=== PATIENT | female | born 1995 | race Caucasian/White ===

== ENCOUNTER 2018-08-28 08:48 | Emergency (ER) | payer OTHER ==
[~2018-08-28] VITALS: Ht 165.1 cm; Wt 125.2 kg
[2018-08-28] MEDS ORDERED: PIRMELLA1 EAC1 PO (09:02)
[2018-08-28 09:22] LABS: ABSOLUTE LYMPHOCYTES 1.7 thou/uL (0.8-5.3); ABSOLUTE MONOCYTES 0.4 thou/uL (0.0-1.2); ABSOLUTE NEUTROPHILS 4.8 thou/uL (1.6-8.1); BASOPHILS 0.6 %; EOSINOPHILS 0.6 %; HEMATOCRIT 37.4 % (37.0-47.0); HEMOGLOBIN 12.6 gm/dL (12.0-15.0); LYMPHOCYTES 24.6 %; MCH 28.7 pg (26.0-34.0); MCHC 33.6 g/dL (28.0-37.0); MCV 85.4 fL (80.0-100.0); MPV 8.7 fl. (7.2-11.1); NUCLEATED RBCS 0 /100WBC; PLATELET COUNT* 280 thou/uL (150-400); POLYS 69.2 %; RBC 4.38 mil/uL (4.20-5.00); RDW-CV 13.8 % (10.5-14.5)
[2018-08-28 09:35] LABS: APTT 27.9 Seconds (25.0-31.3); PROTIME 10.4 Seconds (9.20-11.50)
[2018-08-28 09:39] LABS: ANION GAP 10 mmol/L (7-16); BUN 10 mg/dL (7-18); CALCIUM 8.9 mg/dL (8.5-10.1); CHLORIDE 105 mmol/L (98-107); CO2 24 mmol/L (21-32); CREATININE 0.8 mg/dL (0.6-1.3); GLUCOSE 94 mg/dL (70-99); POTASSIUM 3.7 mmol/L (3.5-5.1); SODIUM 139 mmol/L (136-145)
[2018-08-28 09:50] LABS: ALBUMIN 3.7 g/dL (3.4-5.0); ALKALINE PHOSPHATASE 81 U/L (46-116); CK-MB MASS 0.9 ng/mL (<0.5-3.6); LIPASE 99 U/L (73-393); NT-PRO BRAIN NAT PEPTIDE 178 pg/mL (<300); SGOT 50 U/L (15-37); SGPT 90 U/L (30-65); TOTAL BILIRUBIN 0.5 mg/dL (<0.1-1.0); TOTAL PROTEIN 7.2 g/dL (6.4-8.2); TROPONIN-I LEVEL <0.06 ng/mL (<0.06)
[2018-08-28 10:33] VITALS: BP 117/81
--- NOTE | 2018-08-28 16:13 | EKG ---
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
== END 2018-08-28 10:33 | disposition home or self-care (01) ==
LOC: M.ERS 08:48
PROVIDERS: Family Medicine
DX: R07.89 Other chest pain (principal)

== ENCOUNTER 2020-02-24 15:49 | Emergency (ER) | payer OTHER ==
[~2020-02-24] VITALS: Ht 167.6 cm; Wt 99.8 kg
[~2020-02-24 15:49] MED LIST: PIRMELLA1 EAC1 PO
[2020-02-24] MEDS ORDERED: ANXIETY MEDICATION (16:12)
[2020-02-24] MEDS ORDERED: DICLOFENAC SOD50 M1 PO (18:10)
[2020-02-24] MEDS ORDERED: BACLOFEN5 MG PO (18:10)
[2020-02-24 18:21] VITALS: BP 137/82
== END 2020-02-24 18:22 | disposition home or self-care (01) ==
LOC: M.ERS 15:49
DX: M54.5 Low back pain (principal)